=== PATIENT | male | born 1980 | race Caucasian/White ===

== ENCOUNTER 2021-06-21 03:44 | Emergency (ER) | payer OTHER ==
--- NOTE | 2021-06-21 03:57 | NUR ---
Patient called to triage, no response. Will attempt to call patient's name again.
--- NOTE | 2021-06-21 04:14 | NUR ---
patient called to triage, no answer. Will try again.
--- NOTE | 2021-06-21 04:20 | NUR ---
WHEN CALLED TO TRAIAGE PT DIDN'T WANT TO BE SEEN.
--- NOTE | 2021-06-21 04:25 | NUR ---
Patient states, "No, I don't want to go in there, I don't want to be seen."
== END 2021-06-21 04:35 | disposition left against medical advice (07) ==
LOC: ER 03:48
DX: Z53.21 Procedure and treatment not carried out due to patient leaving prior to being seen by health care provider (principal)